=== PATIENT | female | born 2000 | race Caucasian/White ===

== ENCOUNTER 2019-04-16 09:35 | Observation (INO) | payer MEDICAID ==
[~2019-04-16] VITALS: Ht 149.9 cm; Wt 67.1 kg
[2019-04-16] MEDS ORDERED: PREN1TAB78 MT (10:44)
[2019-04-16] MEDS ORDERED: CALC-1042 MT (10:44)
== END 2019-04-16 11:15 | disposition home or self-care (01) ==
LOC: 8 EST LDRP 09:35
PROVIDERS: ADMIT Obstetrics & Gynecology; ATTEND Obstetrics & Gynecology
DX: O36.8130 Decreased fetal movements, third trimester, not applicable or unspecified (principal); Z3A.38 38 weeks gestation of pregnancy
CPT/HCPCS: 76815; 76818; 99281; G0378

== ENCOUNTER 2019-05-11 13:18 | Emergency (ER) | payer MEDICAID ==
[~2019-05-11] VITALS: Ht 149.9 cm; Wt 60.1 kg
[~2019-05-11 13:18] MED LIST: CALC-1042 MT; PREN1TAB78 MT
[2019-05-11] MEDS ORDERED: ACETAMINOPHEN 325MG TABLET PO STA (14:29)
[2019-05-11] MEDS ORDERED: SODIUM CHLORIDE 0.9% 1000ML BAG (SEPSIS BOLUS) IV ONE (14:30)
[2019-05-11] MEDS ORDERED: CEFTRIAXONE 1 G PREMIX 50 ML IV ONE (14:30)
[2019-05-11 15:43] LABS: BASOPHILS % 0.4 % (0.0-2.0); HEMATOCRIT. 38.3 % (36.0-48.0); HEMOGLOBIN. 13.7 g/dL (12.0-16.0); LYMPHOCYTES % 12.8 % (20.0-50.0); MEAN CORPUSCULAR HEMOGLOBIN 33.3 pg (28.0-32.0); MEAN CORPUSCULAR VOLUME 93.3 fL (81.0-99.0); MEAN PLATELET VOLUME 7.8 fl (7.4-10.4); MONOCYTES % 3.9 % (2.0-8.0); NEUTROPHILS % 82.9 % (40.0-76.0); PLATELET 218 x1000/uL (130-400); RED BLOOD CELL COUNT 4.11 mill/uL (4.2-5.4); RED CELL DISTRIBUTION WIDTH 11.9 % (11.6-14.6)
[2019-05-11 15:49] LABS: CHLORIDE 105 mEq/L (98-107); INR 1.2; PROTHROMBIN TIME 12.1 sec (9.6-11.0)
[2019-05-11 20:05] LABS: CLARITY URINE CLOUDY (CLEAR); COLOR URINE YELLOW (YELLOW); KETONES URINE TRACE (NEGATIVE); LEUKOCYTE ESTERASE URINE 3+ (NEGATIVE); NITRITE URINE NEGATIVE (NEGATIVE); OCCULT BLOOD URINE 3+ (NEGATIVE); PROTEIN URINE 1+ (NEGATIVE); SPECIFIC GRAVITY URINE 1.018 (1.005-1.030); UROBILINOGEN URINE 0.2 E.U./dL (0.2-1.0)
[2019-05-11] MEDS ORDERED: CEFTRIAXONE 1 G PREMIX 50 ML IV NR (20:30)
[2019-05-11 21:53] VITALS: BP 121/78
== END 2019-05-11 21:56 | disposition home or self-care (01) ==
LOC: ER 13:18 → EDBEDREQ 14:31 → ER 21:56 → CANBEDREQ 22:19
DX: N39.0 Urinary tract infection, site not specified (principal)
CPT/HCPCS: 36415; 71045; 80053; 81003; 81025; 83605; 84145; 84484; 85025; 85610; 87040; 87086; 87804; 93005; 96365; 96366; 96367; 99284; J0696; J7030

== ENCOUNTER 2022-01-06 18:15 | Emergency (ER) | payer MEDICAID, OTHER ==
[~2022-01-06] VITALS: Ht 160 cm; Wt 75.0 kg
[2022-01-06 18:40] VITALS: BP 119/70
[2022-01-07 01:38] LABS: BASOPHILS % 0.2 % (0.0-2.0); EOSINOPHILS % 0.4 % (0.0-5.0); HEMATOCRIT. 36.8 % (36.0-48.0); HEMOGLOBIN. 12.5 g/dL (12.0-16.0); LYMPHOCYTES % 32.8 % (20.0-50.0); MEAN CORPUSCULAR HEMOGLOBIN 29.5 pg (28.0-32.0); MEAN CORPUSCULAR VOLUME 86.6 fL (81.0-99.0); MEAN PLATELET VOLUME 7.7 fl (7.4-10.4); MONOCYTES % 7.7 % (2.0-8.0); NEUTROPHILS % 58.9 % (40.0-76.0); PLATELET 272 x1000/uL (130-400); RED BLOOD CELL COUNT 4.25 mill/uL (4.2-5.4); RED CELL DISTRIBUTION WIDTH 13.8 % (11.6-14.6)
[2022-01-07 01:47] LABS: CHLORIDE 105 mEq/L (98-107)
== END 2022-01-07 03:25 | disposition home or self-care (01) ==
LOC: ER 18:15
DX: O26.891 Other specified pregnancy related conditions, first trimester (principal); R10.9 Unspecified abdominal pain; Z3A.11 11 weeks gestation of pregnancy
CPT/HCPCS: 36415; 76815; 80053; 81025; 85025; 99284

== ENCOUNTER 2022-05-01 10:03 | Emergency (ER) | payer MEDICAID, OTHER ==
[~2022-05-01] VITALS: Ht 149.9 cm; Wt 69.0 kg
[2022-05-01 14:03] LABS: BASOPHILS % 0.1 % (0.0-2.0); EOSINOPHILS % 0.3 % (0.0-5.0); HEMATOCRIT. 38.1 % (36.0-48.0); HEMOGLOBIN. 13.3 g/dL (12.0-16.0); LYMPHOCYTES % 17.5 % (20.0-50.0); MEAN CORPUSCULAR HEMOGLOBIN 32.6 pg (28.0-32.0); MEAN CORPUSCULAR VOLUME 93.2 fL (81.0-99.0); MEAN PLATELET VOLUME 7.1 fl (7.4-10.4); NEUTROPHILS % 77.1 % (40.0-76.0); PLATELET 254 x1000/uL (130-400); RED BLOOD CELL COUNT 4.09 mill/uL (4.2-5.4); RED CELL DISTRIBUTION WIDTH 13.6 % (11.6-14.6)
[2022-05-01 14:10] LABS: CHLORIDE 108 mEq/L (98-107)
[2022-05-01 16:35] LABS: CLARITY URINE CLOUDY (CLEAR); COLOR URINE YELLOW (YELLOW); KETONES URINE 1+ (NEGATIVE); LEUKOCYTE ESTERASE URINE 3+ (NEGATIVE); NITRITE URINE NEGATIVE (NEGATIVE); OCCULT BLOOD URINE NEGATIVE (NEGATIVE); PROTEIN URINE 1+ (NEGATIVE); SPECIFIC GRAVITY URINE 1.023 (1.005-1.030)
[2022-05-01] MEDS ORDERED: CEPH500C2 MT (18:42)
[2022-05-01 19:40] VITALS: BP 113/57
== END 2022-05-01 20:09 | disposition home or self-care (01) ==
LOC: ER 10:31
DX: N39.0 Urinary tract infection, site not specified (principal)
CPT/HCPCS: 36415; 80053; 81003; 85025; 99283

== ENCOUNTER 2022-05-21 18:58 | Observation (INO) | payer OTHER ==
[~2022-05-21] VITALS: Ht 149.9 cm; Wt 70.8 kg
[~2022-05-21 18:58] MED LIST changes: +CEPH500C2 MT
[2022-05-21] MEDS ORDERED: PREN1TAB78 MT (21:27)
[2022-05-21] MEDS ORDERED: CALC-1042 MT (21:29)
[2022-05-21] MEDS: BETAMETHASONE ACET/BETAMET 30 MG/5 ML VIAL IM NR (22:42)
== END 2022-05-21 22:45 | disposition home or self-care (01) ==
LOC: 8 EST LDRP 18:58
PROVIDERS: ADMIT Obstetrics & Gynecology; ATTEND Obstetrics & Gynecology
DX: O42.90 Premature rupture of membranes, unspecified as to length of time between rupture and onset of labor, unspecified weeks of gestation (principal); Z3A.31 31 weeks gestation of pregnancy
CPT/HCPCS: 59025; 82731; 96372; J0702; 99281; G0378

== ENCOUNTER 2022-05-22 20:09 | Observation (INO) | payer OTHER ==
[~2022-05-22] VITALS: Ht 149.9 cm; Wt 70.8 kg
[~2022-05-22 20:09] MED LIST changes: -CEPH500C2 MT
[2022-05-22] MEDS ORDERED: BETAMETHASONE ACET/BETAMET 30 MG/5 ML VIAL IM NR (21:00)
== END 2022-05-22 21:50 | disposition home or self-care (01) ==
LOC: 8 EST LDRP 20:09
PROVIDERS: ADMIT Obstetrics & Gynecology; ATTEND Obstetrics & Gynecology
DX: O99.891 Other specified diseases and conditions complicating pregnancy (principal); M54.6 Pain in thoracic spine; Z3A.31 31 weeks gestation of pregnancy
CPT/HCPCS: 59025; 96372; G0378; J0702; 99281

== ENCOUNTER 2022-06-07 15:57 | Inpatient (IN) | payer OTHER ==
[~2022-06-07] VITALS: Ht 149.9 cm; Wt 70.8 kg
[2022-06-07 17:16] LABS: CLARITY URINE CLEAR (CLEAR); COLOR URINE YELLOW (YELLOW); KETONES URINE TRACE (NEGATIVE); LEUKOCYTE ESTERASE URINE TRACE (NEGATIVE); NITRITE URINE NEGATIVE (NEGATIVE); OCCULT BLOOD URINE NEGATIVE (NEGATIVE); PROTEIN URINE NEGATIVE (NEGATIVE); SPECIFIC GRAVITY URINE 1.027 (1.005-1.030)
[2022-06-07] MEDS: AMPICILLIN 500 MG in SODIUM CHLORIDE 0.9% 50 ML IV SCH (21:06)
[2022-06-07] MEDS: LACTATED RINGERS 1,000 ML IV SCH (21:07)
[2022-06-08] MEDS: AMPICILLIN 500 MG in SODIUM CHLORIDE 0.9% 50 ML IV SCH ×2 (02:18→08:14)
[2022-06-08] MEDS: LACTATED RINGERS 1,000 ML IV SCH (02:20)
== END 2022-06-08 09:00 | disposition home or self-care (01) | DRG 566 ==
LOC: 8 EST A/PP 15:57
PROVIDERS: ADMIT Obstetrics & Gynecology; ATTEND Obstetrics & Gynecology
DX: O47.9 False labor, unspecified (principal); Z3A.33 33 weeks gestation of pregnancy
CPT/HCPCS: 81003; 82731; 96360; 96365; 99281; J0290; A4315

== ENCOUNTER 2022-07-21 23:06 | Inpatient (IN) | payer OTHER ==
[~2022-07-21] VITALS: Ht 149.9 cm; Wt 73.9 kg
[2022-07-22] MEDS ORDERED: PENICILLIN G POTASSIUM 5 MMU in DEXT 5% WATER 100 ML IV NR ×2
[2022-07-22] MEDS ORDERED: LACTATED RINGERS 1,000 ML IV PRN
[2022-07-22] MEDS ORDERED: CARBOPROST TROMETHAMINE 250 MCG/ML AMPUL IM PRN
[2022-07-22] MEDS ORDERED: METHYLERGONOVINE MALEATE 0.2 MG/ML IM PRN
[2022-07-22] MEDS ORDERED: MISOPROSTOL 100MCG TABLET VG SCH
[2022-07-22] MEDS ORDERED: BUTORPHANOL TARTRATE 2 MG/ML VIAL IV PRN
[2022-07-22] MEDS ORDERED: NALOXONE HCL 0.4 MG/ML 1ML VIAL IM PRN
[2022-07-22] MEDS ORDERED: OXYTOCIN 30 UNITS/500ML NS PMX 500 ML IV SCH
[2022-07-22 00:59] LABS: CLARITY URINE CLEAR (CLEAR); COLOR URINE YELLOW (YELLOW); KETONES URINE NEGATIVE (NEGATIVE); LEUKOCYTE ESTERASE URINE NEGATIVE (NEGATIVE); NITRITE URINE NEGATIVE (NEGATIVE); OCCULT BLOOD URINE NEGATIVE (NEGATIVE); PROTEIN URINE NEGATIVE (NEGATIVE); SPECIFIC GRAVITY URINE 1.004 (1.005-1.030)
[2022-07-22 01:12] LABS: *AMPHETAMINES SCREEN URINE NEGATIVE (NEGATIVE); *BARBITURATES SCREEN URINE NEGATIVE (NEGATIVE); *BENZODIAZEPINES SCREEN URINE NEGATIVE (NEGATIVE); *COCAINE SCREEN URINE NEGATIVE (NEGATIVE); CANNABINOID URINE SCREEN NEGATIVE (NEGATIVE); METHADONE URINE SCREEN NEGATIVE (NEGATIVE); OPIATES URINE SCREEN NEGATIVE (NEGATIVE); PHENCYCLIDINE URINE SCREEN NEGATIVE (NEGATIVE)
[2022-07-22 01:29] LABS: BASOPHILS % 0.1 % (0.0-2.0); EOSINOPHILS % 0.5 % (0.0-5.0); HEMATOCRIT. 38.3 % (36.0-48.0); HEMOGLOBIN. 13.4 g/dL (12.0-16.0); LYMPHOCYTES % 21.3 % (20.0-50.0); MEAN CORPUSCULAR HEMOGLOBIN 32.3 pg (28.0-32.0); MEAN CORPUSCULAR VOLUME 92.5 fL (81.0-99.0); MEAN PLATELET VOLUME 8.4 fl (7.4-10.4); MONOCYTES % 7.2 % (2.0-8.0); NEUTROPHILS % 70.9 % (40.0-76.0); PLATELET 213 x1000/uL (130-400); RED BLOOD CELL COUNT 4.15 mill/uL (4.2-5.4); RED CELL DISTRIBUTION WIDTH 13.2 % (11.6-14.6)
[2022-07-22 01:34] LABS: HEPATITIS B SURFACE ANTIGEN NEGATIVE
[2022-07-22 01:37] LABS: INR 0.9; PARTIAL THROMBOPLASTIN TIME 28.9 sec (23.4-31.0); PROTHROMBIN TIME 10.1 sec (9.6-11.0)
[2022-07-22] MEDS ORDERED: IBUPROFEN 400MG TABLET PO PRN (02:00)
[2022-07-22 03:05] VITALS: BP 99/54
[2022-07-22] MEDS ORDERED: PENICILLIN G POTASSIUM 2.5 MMU in DEXTROSE 5% WATER 50 ML IV SCH (04:30)
[2022-07-22] MEDS ORDERED: PRENATAL VIT/FE FUMARATE/FA TABLET PO SCH (09:00)
[2022-07-22 10:00] VITALS: BP 100/60
[2022-07-22] MEDS ORDERED: MEASLES,MUMPS&RUBELLA VACCINE 1 VIAL SUBCUT ONE (11:00)
[2022-07-22] MEDS ORDERED: TETANUS, DIPHTHERIA, PERTUSSIS VAC/PF 0.5ML (>10YR OLD) IM ONE (11:00)
[2022-07-22] MEDS ORDERED: INFLUENZA VACCINE 05/PF 0.5 ML SYRINGE IM ONE (11:00)
[2022-07-22 14:00] VITALS: BP 110/69
[2022-07-22 19:30] VITALS: BP 90/47
[2022-07-22] MEDS: IBUPROFEN 800MG TABLET PO PRN (20:32)
[2022-07-23 04:00] VITALS: BP 96/46
[2022-07-23] MEDS: LANOLIN OINT 7GM TUBE TOP PRN ×2 (05:00→05:07)
[2022-07-23 06:44] LABS: BASOPHILS % 0.2 % (0.0-2.0); EOSINOPHILS % 0.9 % (0.0-5.0); HEMATOCRIT. 34.4 % (36.0-48.0); HEMOGLOBIN. 12.1 g/dL (12.0-16.0); LYMPHOCYTES % 28.5 % (20.0-50.0); MEAN CORPUSCULAR VOLUME 93.9 fL (81.0-99.0); MONOCYTES % 6.2 % (2.0-8.0); NEUTROPHILS % 64.2 % (40.0-76.0); PLATELET 200 x1000/uL (130-400); RED BLOOD CELL COUNT 3.67 mill/uL (4.2-5.4); RED CELL DISTRIBUTION WIDTH 13.3 % (11.6-14.6)
[2022-07-23] MEDS: FERROUS SULFATE 325MG TABLET PO SCH ×2 (07:30→12:30)
[2022-07-23 08:00] VITALS: BP 101/59
[2022-07-23 08:11] LABS: HIV SCREEN 4G Non Reactive (Non Reactive)
[2022-07-23] MEDS: IBUPROFEN 800MG TABLET PO PRN (10:34)
[2022-07-23 16:00] VITALS: BP 98/53
== END 2022-07-23 17:00 | disposition home or self-care (01) | DRG 560 ==
LOC: 8 EST LDRP 23:06 → OBSVTOIN 23:06 → 8EST 07-22 02:37
PROVIDERS: ADMIT Obstetrics & Gynecology; ATTEND Obstetrics & Gynecology
PROC: 10E0XZZ Delivery of Products of Conception, External Approach (ICD-10-PCS; principal; 2022-07-22)
DX: O80 Encounter for full-term uncomplicated delivery (principal); Z37.0 Single live birth; Z20.822 Contact with and (suspected) exposure to COVID-19; Z3A.39 39 weeks gestation of pregnancy
CPT/HCPCS: 36415; 80305; 81003; 85025; 86592; 86762; 86850; 86900; 87340; 87389; 87426; 90686; 90707; 90715; 99281; J0595; J2540; J7060; J2590

== ENCOUNTER 2022-07-28 18:56 | Emergency (ER) | payer OTHER ==
[~2022-07-28] VITALS: Ht 149.9 cm; Wt 73.0 kg
[~2022-07-28 18:56] MED LIST changes: -CALC-1042 MT
[2022-07-28 20:13] LABS: BASOPHILS % 0.6 % (0.0-2.0); EOSINOPHILS % 2.1 % (0.0-5.0); HEMATOCRIT. 41.1 % (36.0-48.0); HEMOGLOBIN. 14.2 g/dL (12.0-16.0); LYMPHOCYTES % 28.3 % (20.0-50.0); MEAN CORPUSCULAR HEMOGLOBIN 32.6 pg (28.0-32.0); MEAN CORPUSCULAR VOLUME 94.8 fL (81.0-99.0); MEAN PLATELET VOLUME 7.2 fl (7.4-10.4); MONOCYTES % 7.1 % (2.0-8.0); NEUTROPHILS % 61.9 % (40.0-76.0); PLATELET 334 x1000/uL (130-400); RED BLOOD CELL COUNT 4.34 mill/uL (4.2-5.4); RED CELL DISTRIBUTION WIDTH 12.9 % (11.6-14.6)
[2022-07-28 20:21] LABS: CHLORIDE 108 mEq/L (98-107)
[2022-07-28 22:35] LABS: CLARITY URINE CLEAR (CLEAR); COLOR URINE YELLOW (YELLOW); KETONES URINE TRACE (NEGATIVE); LEUKOCYTE ESTERASE URINE 1+ (NEGATIVE); NITRITE URINE NEGATIVE (NEGATIVE); OCCULT BLOOD URINE 3+ (NEGATIVE); PH URINE 7.5 (4.5-8.0); PROTEIN URINE 1+ (NEGATIVE); SPECIFIC GRAVITY URINE 1.037 (1.005-1.030)
[2022-07-28] MEDS ORDERED: NITR-87 MT (23:11)
[2022-07-28 23:37] VITALS: BP 124/61
== END 2022-07-28 23:38 | disposition home or self-care (01) ==
LOC: ER 19:08
DX: R10.9 Unspecified abdominal pain (principal); N39.0 Urinary tract infection, site not specified
CPT/HCPCS: 36415; 76830; 76856; 80053; 81003; 85025; 99284